=== PATIENT | male | born 1990 | race Caucasian/White ===

== ENCOUNTER 2016-08-19 22:08 | Emergency (ER) | payer SELFPAY ==
[~2016-08-19] VITALS: Ht 190.5 cm; Wt 95.3 kg
[2016-08-19] MEDS ORDERED: KETOROLAC TROMETHAMINE 30 MG INJ IM ONE (22:45)
[2016-08-19] MEDS ORDERED: KETOROLAC TROMETHAMINE 30 MG INJ ONE (23:02)
[2016-08-19 23:23] VITALS: BP 158/82
--- NOTE | 2016-08-19 23:23 | NUR ---
Patient discharged to home in stable conditon WALKED OUT OF ER WITH STEADY GAIT. Written and verbal after care instructions given. Patient verbalizes understanding of instructions.
== END 2016-08-19 23:24 | disposition home or self-care (01) ==
LOC: ER 22:08
DX: M54.2 Cervicalgia (principal); F17.200 Nicotine dependence, unspecified, uncomplicated; Z88.6 Allergy status to analgesic agent; V49.50XA Passenger injured in collision with unspecified motor vehicles in traffic accident, initial encounter; W22.10XA Striking against or struck by unspecified automobile airbag, initial encounter; Y93.89 Activity, other specified; Y99.8 Other external cause status; Y92.89 Other specified places as the place of occurrence of the external cause
CPT/HCPCS: A4663; J1885